=== PATIENT | female | born 1980 | race Hispanic/Latino ===

== ENCOUNTER 2018-07-07 22:45 | Emergency (ER) | payer OTHER ==
[2018-07-07 22:55] VITALS: BP 113/76; PULSE 78; RESP 16; TEMP 98.1; O2SAT 98
--- NOTE | 2018-07-07 23:16 | ED PDOC ---
Lower Extremity Pain/Injury Time Seen by Provider: 07/07/18 22:56 Chief Complaint (Nursing): Lower Extremity Problem/Injury History Per: Patient Onset/Duration Of Symptoms: Days Current Symptoms Are (Timing): Still Present Additional Complaint(s): Patient with no PMHx presenting with rash to R inner thigh, states she had a "pimple" that she popped herself on Tuesday and since then has had erythema of the inner thigh. Denies fevers, chills, sweats, weight loss, streaking, or any other symptoms. PMD: in [facility] Past Medical History Reviewed: Historical Data, Nursing Documentation, Vital Signs Vital Signs: Last Vital Signs Temp 98.1 F 07/07/18 22:51 Pulse 78 07/07/18 22:51 Resp 16 07/07/18 22:51 BP 113/76 07/07/18 22:51 Pulse Ox 98 07/07/18 22:51 - Medical History PMH: No Chronic Diseases - Family History Family History: States: Unknown Family Hx - Home Medications Home Medications: Ambulatory Orders Medication Instructions Recorded Cephalexin [cephalexin] 500 mg PO Q6 10 Days #40 cap 07/07/18 - Allergies Allergies/Adverse Reactions: Allergies Allergy/AdvReac Type Severity Reaction Status Date / Time amoxicillin Allergy NAUSEA Verified 07/07/18 22:50 tree nut Allergy ANAPHYLAXIS Verified 07/07/18 22:50 Review of Systems ROS Statement: Except As Marked, All Systems Reviewed And Found Negative Skin: Positive for: Rash Physical Exam - Reviewed Nursing Documentation Reviewed: Yes Vital Signs Reviewed: Yes - Physical Exam Appears: Positive for: Well, Non-toxic, No Acute Distress Head Exam: Positive for: ATRAUMATIC, NORMAL INSPECTION, NORMOCEPHALIC Skin: Positive for: Rash (8cm diameter inner erythematous rash of inner R thigh near groin, no streaking, no fluctuance) - ECG O2 Sat by Pulse Oximetry: 98 Pulse Ox Interpretation: Normal Medical Decision Making Medical Decision Making: Patient presenting with rash to inner thigh --Vitals stable, patient is very well appearing --Apperas cellulitic, no MRSA risk factors --Will treat with keflex, advised patient to followup Tuesday with PMD for checkup Disposition - Clinical Impression Clinical Impression: Cellulitis - Disposition Referrals: Aide[facility] Ochoa [facility] [Outside] Disposition: Routine/Home Disposition Time: 23:17 Condition: STABLE Prescriptions: Cephalexin [cephalexin] 500 mg PO Q6 10 Days #40 cap Instructions: Cellulitis and Erysipelas (Skin Infections) Forms: [employer] (Kiswahili)
== END 2018-07-07 23:18 | disposition home or self-care (01) ==
LOC: H.ER 22:45
DX: L03.115 Cellulitis of right lower limb (principal)